=== PATIENT | male | born 1990 | race Caucasian/White ===

== ENCOUNTER 2018-05-06 23:47 | Emergency (ER) | payer SELFPAY ==
[~2018-05-06] VITALS: Ht 177.8 cm; Wt 68.0 kg
[2018-05-06 23:50] VITALS: BP 133/84
[2018-05-07] MEDS ORDERED: IBUPROFEN 400 MG TABLET PO ONE (00:30)
[2018-05-07] MEDS ORDERED: CYCLOBENZAPRINE 10 MG TABLET PO ONE (00:30)
== END 2018-05-07 00:10 | disposition home or self-care (01) ==
LOC: ER 23:49
DX: M54.12 Radiculopathy, cervical region (principal)
CPT/HCPCS: A4606; Z7610